=== PATIENT | female | born 1995 | race Caucasian/White ===

== ENCOUNTER 2018-11-30 18:07 | Emergency (ER) | payer MEDICAID | END 2018-11-30 18:35 | disposition left against medical advice (07) | LOC: DL.ED 18:07 | DX: Z53.21 Procedure and treatment not carried out due to patient leaving prior to being seen by health care provider (principal) ==

== ENCOUNTER 2021-11-28 18:49 | Emergency (ER) | payer MEDICAID ==
[2021-11-28 20:24] VITALS: BP 115/76; PULSE 88
== END 2021-11-28 20:20 | disposition home or self-care (01) ==
LOC: DL.ED 18:49
DX: S93.402A Sprain of unspecified ligament of left ankle, initial encounter (principal); W18.40XA Slipping, tripping and stumbling without falling, unspecified, initial encounter
CPT/HCPCS: 73610-LT; 99283

== ENCOUNTER 2023-02-02 21:48 | Emergency (ER) | payer MEDICAID ==
[2023-02-02] MEDS ORDERED: Metoclopramide 10 MG/2 ML SDV IM ONE (22:16)
[2023-02-02 22:42] LABS: ALBUMIN 3.8 g/dL (3.4-5.0); ANION GAP 15.7 mEq/L (7-13); BILIRUBIN TOTAL 0.2 mg/dL (0.2-1.0); BUN/CREATININE RATIO 9.6 (No establ ref range); CALCIUM 9.4 mg/dL (8.5-10.1); CREATININE 0.73 mg/dL (0.55-1.02); EST CRCL DRUG DOSING (CG) 106.01 mL/min; MAGNESIUM 1.8 mg/dL (1.8-2.4); POTASSIUM,K 3.7 mmol/L (3.5-5.1); PROTEIN TOTAL,TP 7.5 g/dL (6.4-8.2)
[2023-02-02 22:54] VITALS: BP 119/84; PULSE 80
== END 2023-02-02 22:52 | disposition home or self-care (01) ==
LOC: DL.ED 21:48
DX: O21.9 Vomiting of pregnancy, unspecified (principal)
CPT/HCPCS: 36415; 80053; 83735; 96372; 99283; 99284; J2765

== ENCOUNTER 2023-09-12 00:25 | Observation (INO) | payer MEDICAID ==
[2023-09-12] MEDS ORDERED: Misoprostol 400 MCG (4 X 100 MCG TAB) RECTAL PRN (08:47)
[2023-09-12] MEDS ORDERED: Carboprost Tromethamine 250 MCG/1 ML Amp IM PRN (08:47)
[2023-09-12] MEDS ORDERED: Methylergonovine 0.2 MG/1 ML Amp IM PRN (08:47)
[2023-09-12] MEDS ORDERED: Misoprostol 25 MCG (1/4 of 100 MCG) Tab VAG PRN (08:47)
[2023-09-12] MEDS ORDERED: Sodium Chloride 0.9% 10 ML Syringe FLUSH PRN (08:47)
[2023-09-12] MEDS ORDERED: Tranexamic Acid 1,000 MG in Sodium Chloride 0.9% 100 ML IV PRN (08:47)
[2023-09-12] MEDS: Misoprostol 50 MCG (1/2 of 100 MCG) Tab VAG SCH (08:57)
[2023-09-12 08:58] LABS: HEMATOCRIT 36.9 % (37.0-47.0); HEMOGLOBIN 12.5 g/dL (12.0-16.0); MEAN CORPUSCULAR HEMOGLOBIN 29.1 pg (27.0-34.0); MEAN CORPUSCULAR HGB CONC 33.9 g/dL (33.0-35.0); RED BLOOD CELL COUNT 4.29 10^6/uL (4.2-5.4); WHITE BLOOD CELL COUNT,WBC 8.8 10^3/uL (5.0-10.0)
[2023-09-12] MEDS: Lactated Ringers 1,000 ML IV SCH (17:47)
[2023-09-12] MEDS: Oxytocin/Normal Saline 30 UNIT/500 ML BAG IV SCH (17:48)
[2023-09-12] MEDS: fentaNYL 100 MCG/2 ML SDV IVPUSH PRN (21:15)
[2023-09-12] MEDS: Ondansetron 4 MG/2 ML SDV IVPUSH PRN (22:30)
[2023-09-12] MEDS ORDERED: fentaNYL 100 MCG/2 ML SDV ONE (22:33)
[2023-09-12] MEDS ORDERED: Ropivacaine 200 MG in Premix Bag 1 BAG EPIDUR SCH (23:15)
[2023-09-12] MEDS ORDERED: ePHEDrine 50 MG/ML SDV IVPUSH PRN (23:15)
[2023-09-12] MEDS ORDERED: Phenylephrine HCl In 0.9% NaCl 1 MG/10 ML Syringe IVPUSH PRN (23:15)
[2023-09-13] MEDS: hydrOXYzine HCl 25 MG Tab PO PRN (00:40)
[2023-09-13] MEDS ORDERED: Bupivacaine 0.25% 10 ML SDV ONE (08:23)
[2023-09-13] MEDS ORDERED: Simethicone 80 MG Tab.Chew PO PRN (10:07)
[2023-09-13] MEDS ORDERED: Oxytocin 10 Units/1 ML SDV IM PRN (10:07)
[2023-09-13] MEDS: Acetaminophen 325 MG Tab PO PRN (10:36)
[2023-09-13] MEDS: Docusate Sodium 100 MG Cap PO PRN (10:39)
[2023-09-13] MEDS: Ibuprofen 800 MG Tab PO PRN (10:39)
[2023-09-13] MEDS: Benzocaine/Menthol 20%-0.5% Spray 78 GM Cannister TOP PRN (10:40)
[2023-09-13] MEDS: Acetaminophen/oxyCODONE 325-5 MG Tab PO STA (16:10)
[2023-09-13] MEDS: Lidocaine 1% 30 ML SDV INJECT ONE (17:30)
[2023-09-13] MEDS: Lactated Ringers 1,000 ML IV ONE (18:42)
[2023-09-13] MEDS: Witch Hazel Medicated Pads 100/Jar TOP PRN (21:56)
[2023-09-14] MEDS: Prenatal Multivitamin with Calcium/Folic Acid/Iron Tab PO SCH (08:50)
[2023-09-14] MEDS: Acetaminophen 325 MG Tab PO PRN (13:00)
[2023-09-14 18:18] VITALS: BP 133/82; PULSE 102
[2023-09-14] MEDS ORDERED: fentaNYL 100 MCG/2 ML SDV IV ONE (18:29)
== END 2023-09-14 18:30 | disposition home or self-care (01) ==
LOC: DL.OB 07:50
PROVIDERS: ADMIT Family Medicine; ATTEND Family Medicine
DX: O24.420 Gestational diabetes mellitus in childbirth, diet controlled (principal); Z3A.39 39 weeks gestation of pregnancy; Z37.0 Single live birth; O69.81X0 Labor and delivery complicated by cord around neck, without compression, not applicable or unspecified
CPT/HCPCS: 36415; 51702; 59409; 85027; A9270; J2405; J2590; J3010; J7120